=== PATIENT | male | born 1985 | race Caucasian/White ===

== ENCOUNTER 2016-11-19 08:35 | Emergency (ER) | payer OTHER ==
[~2016-11-19] VITALS: Ht 177.8 cm; Wt 74.8 kg
[~2016-11-19 08:35] MED LIST: AUGMENTIN 875875 MG PO; BACTRIM DS 8001 TAB PO; VICODIN5-300 PO
--- NOTE | 2016-11-19 09:01 | ED GENERAL ADULT ---
History of Present Illness General Chief Complaint: General Adult Stated Complaint: RIB PAIN,HURTS TO BREATHE Source: patient Exam Limitations: no limitations Vital Signs & Intake/Output Vital Signs & Intake/Output Vital Signs Date Time Temp Pulse Resp B/P Pulse O2 O2 Flow FiO2 Ox Delivery Rate 11/19 1032 99.0 100 20 140/78 98 Room Air 11/19 0842 99.1 104 18 144/88 98 Room Air Allergies Coded Allergies: NO KNOWN ALLERGIES (04/28/11) Reconcile Medications Hydrocodone/Acetaminophen ([place] 5-325 Tablet) 5 MG-325 MG TABLET 1-2 TAB PO Q4-6 PRN PRN PAIN Indomethacin 25 MG CAPSULE 1 CAP PO TID PRN PLEURISY with food Triage Note: PT STATES THAT HE HAS HISTORY OF PLEURACY AND HE HAS BEEN HAVING INTERMITTANT SHARP PAIN L SIDE RIB THAT STARTED YESTERDAY. Triage Nurses Notes Reviewed? yes Onset: Gradual Duration: waxing and waning Timing: remote history Injury Environment: home Severity: severe Severity Numbers: 9 Modifying Factors: Improves With: other (PRESSURE). HPI: Patient is a 31-year-old male with history of daily smoking and pleurisy presenting to the emergency department with chief complaint of left anterior rib and chest pain has been going on intermittently since yesterday. He reports that it's worse with taking a deep breath. History of similar symptoms in the past for which she was seen in the emergency department for. He's been taking ibuprofen with little relief. Denies any radiation of the pain. Denies any palpitations. No history of blood clots. Denies recent travel, no recent surgery. No headache family history of blood clots. Denies any lower extremity swelling. He reports he's been coughing intermittently over the past several days but nothing excessive. Denies any trauma. No falls. (LNIDSAY MEEHAN) Past History Travel History Traveled to [place] past 21 day No Medical History Any Pertinent Medical History? see below for history Neurological: NONE EENT: NONE Cardiovascular: NONE Respiratory: asthma, pneumonia, PLEURACY Renal: NONE Musculoskeletal: NONE Psychiatric: NONE Endocrine: NONE Blood Disorders: NONE Cancer(s): NONE DIRECTOR OF AUTOMATION/Reproductive: NONE Tetanus Vaccine: Surgical History Surgical History: non-contributory Psychosocial History What is your primary language Latvian Tobacco Use: Current Daily Use Daily Tobacco Use Amount/Type: => 5 Cigarettes daily ETOH Use: denies use Illicit Drug Use: denies illicit drug use Family History Hx Contributory? No (LINDSAY MEEHAN) Review of Systems Review of Systems Constitutional: Reports: no symptoms. Comments Review of systems: See HPI, All other systems negative. Constitutional, no chills fever or weight loss HEENT: No visual changes no sore throat no congestion Cardiovascular: No palpitation , orthopnea or ankle swelling Skin, no jaundice no rashes Respiratory: No dyspnea sputum or hemoptysis GI: No nausea no vomiting : No dysuria No hematuria Muscle skeletal: no back pain, no neck pain, Neurologic: No numbness no confusion Psych: No stress anxiety or depression,. Heme/endocrine: No bruising no bleeding no polyuria or polydipsia Immunology: No splenectomy or history of AIDS (LINDSAY MEEHAN) Physical Exam Physical Exam General Appearance: well developed/nourished, no apparent distress, alert, awake , comfortable Comments: Well-developed well-nourished person in no acute distress HEENT: Pupils equally round and reactive to light and accommodation. Nose is atraumatic. Moist oral mucosa. Neck: Supple, no lymphadenopathy, normal range of motion without pain or tenderness Back: Nontender, no CVA tenderness. Full range of motion Cardiovascular: Tachycardic rate and regular rhythms no murmurs rubs or gallops, normal JVP Respiratory: Chest nontender, no reproducible pain to palpation over the left anterior chest.. No respiratory distress.breath sounds clear to auscultation bilaterally Extremity: No edema, no calf tenderness to palpation, normal and equal pulses. Neuro: Alert oriented x3 Skin: No appreciable rash on exposed skin, skin is warm and dry. Psych: Mood and affect is normal, memory and judgment is normal. Core Measures ACS in differential dx? Yes CVA/TIA Diagnosis: No Severe Sepsis Present: No Septic Shock Present: No (LINDSAY MEEHAN) Progress Differential Diagnoses I considered the following diagnoses in my evaluation of the patient: Costochondritis, pleurisy, pulmonary embolus, ACS Plan of Care: Orders Procedure Date/time Status Add-on Test (ER Only) 11/19 0900 Active Telemetry/Highway Inspector 11/19 0859 Active TROPONIN LEVEL 11/19 0859 Complete PARTIAL THROMBOPLASTIN TIME 11/19 0859 Complete PROTHROMBIN TIME 11/19 858 Complete D-DIMER 11/19 858 Complete COMPREHENSIVE METABOLIC PANEL 11/19 858 Complete CBC WITHOUT DIFFERENTIAL 11/19 858 Complete EKG 11/19 858 Active Laboratory Tests 11/19/16 0915: Anion Gap 8, Estimated GFR > 60, BUN/Creatinine Ratio 14.0, Glucose 84, Calcium 10.0, Total Bilirubin 0.6, AST 37, ALT 46, Alkaline Phosphatase 62, Troponin I < 0.01, Total Protein 7.1, Albumin 4.4, Globulin 2.7, Albumin/Globulin Ratio 1.6, PT 11.3, INR 1.08, APTT 33, D-Dimer 235 H, CBC w Diff NO MAN DIFF REQ, RBC 5.10 , MCV 86.7, MCH 29.1, RDW 13.3, MPV 8.4, Gran % 74.5, Lymphocytes % 15.6 L, Monocytes % 7.8, Eosinophils % 1.9, Basophils % 0.2, Absolute Granulocytes 10.8 H, Absolute Lymphocytes 2.3, Absolute Monocytes 1.1 H, Absolute Eosinophils 0.3 , Absolute Basophils 0, PUBS MCHC 33.6 Diagnostic Imaging: Viewed by Me: Radiology Read. Discussed w/RAD: Radiology Read. CXR Impression: no acute abnormality, no infiltrates, normal size heart, normal mediastinum Initial ED EKG: NSR, SINUS RHYTHM AT 91 BPM, ANTERIOR st ELEVATION PROBABLY DUE TO LEFT VENTRICULAR HYPERTROPHY Prior EKG: unchanged Comments: 11/19/2016 9:10:26 AM patient is a daily smoker, lungs clear to auscultation, patient is tachycardic on arrival. Having worsening left-sided chest pain with inspiration, cannot exclude pulmonary embolus. Patient will have CBC, CMP, d- dimer. Flow suspicion for pulmonary embolus but cannot PERC patient negative. 11/19/2016 10:22:11 AM patient informed of all lambert results. Feeling improved after Toradol. Patient will be discharged with anti-inflammatories and pain medication. Requesting work note for the next 4 days. He'll follow with PCP or return. D-dimer is negative. X-rays negative. Likely pleurisy. Pain has been going on for several days. Troponin is negative. (ROSY LARA,LINDSAY) Departure Departure Time of Disposition: 1022 Disposition: HOME OR SELF CARE Condition: Stable Clinical Impression Primary Impression: Pleurisy Secondary Impressions: Hypertension Qualifiers: Hypertension type: essential hypertension Qualified Code: I10 - Essential (primary) hypertension Referrals: SAVI SAUCEDO MD (PCP/Family) Additional Instructions: Follow-up with her primary care physician call to make an appointment. Take anti-inflammatories as prescribed. For severe pain take Vicodin as prescribed. Return for worsening symptoms or concerns. Departure Forms: Customer Survey General Discharge Information Prescriptions: Current Visit Scripts Indomethacin 1 CAP PO TID PRN PLEURISY #30 CAP with food Hydrocodone/Acetaminophen ([place] 5-325 Tablet) 1-2 TAB PO Q4-6 PRN PRN PAIN #10 TAB (LINDSAY MEEHAN) PA/BOILER/CHILLER TECHNICIAN Co-Sign Statement Statement: ED Attending supervision documentation- [] I saw and evaluated the patient. I have also reviewed all the pertinent lab results and diagnostic results. I agree with the findings and the plan of care as documented in the PA's/BOILER/CHILLER TECHNICIAN's documentation. x I have reviewed the ED Record and agree with the PA's/BOILER/CHILLER TECHNICIAN's documentation. [] Additions or exceptions (if any) to the PAs/BOILER/CHILLER TECHNICIAN's note and plan are summarized below: [] (LINCOLN RICARDO,HEAVENLY) Critical Care Note Critical Care Note Critical Care Time: 30-74 min (LINDSAY MEEHAN)
[2016-11-19 09:28] LABS: ABSOLUTE BASOPHIL COUNT 0 /CUMM (0.0-0.2); ABSOLUTE EOSINOPHIL COUNT 0.3 /CUMM (0.0-0.7); ABSOLUTE GRANULOCYTE CT 10.8 /CUMM (1.4-6.5); ABSOLUTE LYMPH COUNT 2.3 /CUMM (1.2-3.4); ABSOLUTE MONOCYTE COUNT 1.1 /CUMM (0.10-0.60); BASOPHIL % 0.2 % (0.0-2.0); EOSINOPHIL % 1.9 % (0-5); GRANULOCYTE % 74.5 % (42.2-75.2); HEMATOCRIT 44.2 % (42-52); MEAN CORPUSCULAR HGB 29.1 PG (27.0-31.0); MEAN CORPUSCULAR HGB CONC 33.6 G/DL (33.0-37.0); MEAN CORPUSCULAR VOLUME 86.7 FL (80.0-94.0); MEAN PLATELET VOLUME 8.4 FL (7.4-10.4); PLATELET COUNT 363 /CUMM (130-400); RBC DISTRIBUTION WIDTH 13.3 % (11.5-14.5); WHITE BLOOD CELL COUNT 14.6 /CUMM (4.8-10.8)
--- NOTE | 2016-11-19 09:49 | RADIOLOGY REPORT ---
EXAMINATION: XR CHEST CLINICAL INFORMATION: Cough and chest pain. COMPARISON: 04/30/2011 TECHNIQUE: 2 views of the chest were obtained. FINDINGS: Lungs are well expanded and clear. Trachea is midline in position. The cardiac silhouette is normal in size. The mediastinal and hilar contours are normal. Bones are unremarkable. IMPRESSION: No acute cardiopulmonary disease.
[2016-11-19 10:07] LABS: PT 11.3 SEC (9.4-12.5); PTT 33 SEC (25-37)
[2016-11-19] MEDS ORDERED: INDOMETHACIN25 M1 PO (10:24)
[2016-11-19] MEDS ORDERED: NORCO 5-325 TA1 EACH PO (10:24)
[2016-11-19 10:32] VITALS: BP 140/78
== END 2016-11-19 10:34 ==
LOC: ERH 08:35
PROVIDERS: Physician Assistant
DX: R09.1 Pleurisy (principal); I10 Essential (primary) hypertension; Z72.0 Tobacco use
CPT/HCPCS: 93005; 93010; 96372; J1885